=== PATIENT | female | born 1935 | race Caucasian/White ===

== ENCOUNTER 2023-05-07 05:58 | Emergency (ER) | payer MEDICARE, OTHER, SELFPAY ==
[2023-05-07 06:00] VITALS: BP 166/94; PULSE 110; RESP 17; TEMP 36; O2SAT 96; BMI 29.2
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
== END 2023-05-07 06:58 | disposition home or self-care (01) ==
PROVIDERS: Emergency Provider Emergency Medicine
DX: R04.0 Epistaxis (principal)
CPT/HCPCS: 99283